=== PATIENT | male | born 1985 | race Caucasian/White ===

== ENCOUNTER 2018-04-08 06:25 | Emergency (ER) | payer MEDICAID ==
[~2018-04-08] VITALS: Ht 185.4 cm; Wt 104.3 kg
[2018-04-08 06:38] VITALS: BP 118/79
--- NOTE | 2018-04-08 06:38 | NUR ---
PT PRESENTS TO ED WITH PRODUCTIVE COUGH WITH GREEN PHLEGM, BURNING PAIN 7/10 WITH COUGH, AND GENERALLY FEELING ILL. LUNGS CLEAR BILAT THROUGHOUT. VSS. AFEBRILE. HX OF MULTIPLE UPPER/LOWER RESPIRATORY INFECTIONS. X1 PACK OF CIGARETTS/DAY. POSITIONED IN BED FOR COMFORT. SIDE RAIL UP. HOB ELEVATED. ER MD AWARE. CONTINUE TO MONITOR.
--- NOTE | 2018-04-08 06:38 | NUR ---
PT AMBULATED TO BED 2 WITH VSS.
--- NOTE | 2018-04-08 07:12 | NUR ---
RECIEVED REPORT FROM ANNETTE STUART, AT THIS TIME.
[2018-04-08] MEDS ORDERED: DOXYCYCLINE 100 MG CAP PO STA (07:22)
[2018-04-08] MEDS ORDERED: IBUPROFEN 600 MG TAB PO ONE (07:25)
[2018-04-08 08:08] VITALS: BP 117/75
--- NOTE | 2018-04-08 08:08 | NUR ---
Patient discharged with v/s stable. Written and verbal after care instructions given and explained. Patient alert, oriented and verbalized understanding of instructions. Ambulatory with steady gait. All questions addressed prior to discharge. ID band removed. Patient advised to follow up with PMD. Rx of Doxycycline, albuterol, and Ibuprofen given. Patient educated on indication of medication including possible reaction and side effects. Opportunity to ask questions provided and answered.
== END 2018-04-08 08:08 | disposition home or self-care (01) ==
LOC: MED 06:25
DX: R05 Cough (principal); R50.9 Fever, unspecified; F17.210 Nicotine dependence, cigarettes, uncomplicated; Z71.6 Tobacco abuse counseling
CPT/HCPCS: 99283